=== PATIENT | female | born 1990 | race American Indian/Alaskan Native ===

== ENCOUNTER 2021-07-17 10:46 | Emergency (ER) | payer SELFPAY ==
[2021-07-17 10:57] VITALS: BP 143/70
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
[2021-07-17] MEDS ORDERED: KETOROLAC 30 MG/1 ML INJ IM ONE (14:22)
== END 2021-07-17 15:04 | disposition home or self-care (01) ==
LOC: ED 10:46
DX: R51.9 Headache, unspecified (principal); R42 Dizziness and giddiness; Z88.1 Allergy status to other antibiotic agents; Z79.899 Other long term (current) drug therapy
CPT/HCPCS: 70450; 96372; 99283; J1885